=== PATIENT | male | born 1985 | race Caucasian/White ===

== ENCOUNTER 2017-02-14 07:06 | Day surgery (SDC) | payer MEDICARE, MEDICAID ==
[~2017-02-14] VITALS: Ht 165.1 cm; Wt 90.7 kg
[~2017-02-14 07:06] MED LIST: APAP/BUTALBITAL1 TA1 PO; ATENOLOL50 MG PO; BACLOFEN 10MG T10 MG PO; BENTYL GENERIC10 MG PO; BUSPAR 10MG TAB10 MG PO; CLOTRIMAZOLE1% TP; FLUOXETINE20 M2 PO; FLUTICASON0.05 MG/AC INH; HYDROCODONE 7.51 TAB PO; IBUPROFEN 600M600 MG PO; KEFLEX 500MG.500 MG PO; KETOCONAZOLE S EX; LOMOTIL 0.025 M1 TAB PO; LORATADINE 10MG10 M1; METOCLOPRAMIDE H5 MG PO; MIRALAX17 GM/PACK PO; NITROSTAT 0.4M0.4 MG PO; PHENERGAN 25MG.25 M1 PO; PRILOSEC OTC20 MG PO; PROTONIX 40MG T40 MG PO; RISPERDAL 0.50.5 MG PO; SUCRALFATE 1GM T1 GM PO; TAMIFLU 75MG CA75 MG PO; ZITHROMAX Z-PA250 M1 PO
--- NOTE | 2017-02-14 07:56 | Operative Note ---
Endoscopy Report Date: 02/14/17 Preoperative diagnosis: Epigastric pain Dyspepsia Procedure Type of procedure: Esophagogastroduodenoscopy with biopsies Indications: 31-year-old white male who apparently had previous stroke and heart attack. He had been seen in the emergency department with symptoms of heartburn, dyspepsia, and substernal burning. He has been on Prilosec and Protonix helped somewhat. Plan was for upper endoscopy. Consent was obtained and patient was taken to same-day surgery endoscopy procedure room. He was positioned in a lateral decubitus position. Adequate anesthesia was achieved with propofol. Olympus endoscope was inserted via the oropharynx. Esophagus appeared normal. Stomach was cannulated and insufflated. There was a large amount of food material and liquid within the stomach. This precluded good visualization. Retroflexion however appeared to show moderate hiatal hernia. Gastric antral mucosal biopsy was obtained for CLOtest. Pylorus was traversed and duodenal bulb and duodenal sweep were normal. Biopsy was obtained of the distal esophagus. Findings 1. Hiatal Hernia 2. RETAINED FOOD Follow-Up Follow-Up: Follow-up on the biopsies. Treat H. pylori if positive. If patient has truly been nothing by mouth for greater than 7 hours he may have gastric emptying problem. at 0755
[2017-02-14 08:51] VITALS: BP 109/69
== END 2017-02-14 08:46 | disposition home or self-care (01) ==
LOC: SDC 07:06
PROVIDERS: Surgery
PROC: 0DB68ZX Excision of Stomach, Via Natural or Artificial Opening Endoscopic, Diagnostic (ICD-10-PCS; principal; 2017-02-14 07:30)
DX: K44.9 Diaphragmatic hernia without obstruction or gangrene (principal); R10.13 Epigastric pain

== ENCOUNTER 2017-05-29 09:28 | Inpatient (IN) | payer MEDICARE, MEDICAID ==
[~2017-05-29] VITALS: Ht 165.1 cm; Wt 90.7 kg
[~2017-05-29 09:28] MED LIST changes: -FLUOXETINE20 M2 PO; +FLUOXETINE20 MG PO; -LORATADINE 10MG10 M1; +LORATADINE 10MG10 M1 PO
[2017-05-29 09:30] VITALS: BP 122/75
[2017-05-29 10:03] LABS: HEMOGLOBIN 16.8 g/dL (14.1-18.0); LYMPH # 0.8 K/mm3 (0.7-4.5)
--- NOTE | 2017-05-29 10:18 | Emergency Room Report ---
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 N Clinical Suspician of Infection? N Mental Status: 1 - Regular (Normal Baseline) Sepsis Risk:Low Sepsis Risk Have you (or family members/close friends) recently traveled outside the [place]? N If Yes, where/when: Have you had exposure to infectious disease within the past month? N TB? Other? 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 Today, he woke up his mother at 8:00 AMclaiming that he is not feeling well and has been cold night. upon arrival to the ER he reported that staff that his chest pain. febrile me that he underwent workup by Dr. Almodovar and he was told that his heart is pumping normal. During my interview he he told me that his condition started 2 days ago with a frontal head spasm, bilateral lower extremity spasm, and chest spasms. He admitted for having shortness of breath with exertion and nausea. He feels a burning pain on his back. He denies palpitations or dizziness. He denies vomiting or diarrhea. The patient is sitting in the bed with pressured speech talking to multiple staff members staff about his . Source patient, RN notes reviewed, family, old records Exam Limitations no limitations ALLERGIES Coded Allergies: Sulfa (Sulfonamide Antibiotics) ([facility] 02/10/17) levofloxacin (From LEVAQUIN) ([facility] 02/10/17) Home Medications Active Scripts Pantoprazole Sodium (Protonix 40MG TAB) 40 MG PO DAILY #30 TAB Ref 2 Prov: 11/21/16 Reported Medications OMEPRAZOLE MAGNESIUM (Prilosec OTC) 20 MG PO DAILY Polyethylene Glycol 3350 (Miralax) 17 GM PO DAILYP Loratadine (Loratadine 10MG Tablet) Sucralfate (Sucralfate 1GM Tablet) 1 GM PO ACHS Risperidone (Risperdal 0.5 Mg Tablet) 0.5 MG PO BID Fluoxetine Hydrochloride (Fluoxetine) 20 MG PO DAILY ATENOLOL (Atenolol 50MG) 50 MG PO DAILY Dicyclomine Hcl (Bentyl (Generic) 10MG Capsule) 10 MG PO BID Nitroglycerin (Nitrostat 0.4MG (1/150 Gr) Tabs #25) 0.4 MG PO PRN DIPHENOXYLATE HCL/ATROPINE (Lomotil 2.5-0.025 MG Tablet) 1 TAB PO QIDP BACLOFEN (Baclofen) 10 MG PO TIDP APAP 325MG/CAFF 40MG/BUTA 50MG (Wbyjif-Sselmybl-Imie 50-325-40) 1 TAB PO Q6HP PRN HEADACHES #20 Buspirone Hcl (Buspar 10MG) 10 MG PO DAILY #60 History Medical History General CAD? No Angina: No RI: Yes Hypertension? No Hyperlipidemia? No CHF? No DVT? No PE? No COPD? No Asthma? No Anemia? No GERD? Yes Gastric ulcers? No GI Bleed? No Hernia? No Thyroid Problems? No Hypothyroidism? No CVA? Yes Seizures? Yes Diabetes? No Renal Insuffiency? No End Stage Renal Disease? No UTI? Yes Stones? No GB Disease: No Nephritic Syndrome? No Asplenia? No Hepatitis? No Sickle Cell Disease? No Arthritis? No Migraines? No Cataracts? No Glaucoma? No MRSA? No HIV? No TB? No Anxiety? No Depression? No Cancer? No Immunization Hx DT/Tetanus 05/09/12 Flu NEVER Pneumonia REFUSES Surgical Hx Previous Surgery?Y EAR SURG.TO REMOVE WAX R CYSTOSCOPY TO OPEN URETHR FRONT TEETH PULLED BILATERAL SHOULDERS Family History Family Hx Diabetes Yes CAD Yes Hypertension Yes Hyperlipidemia No Cancer Yes TB No Social History Smoking Hx Smoker: Never Smoker Tobacco: No Alcohol Alcohol: No Review of Systems All Other Systems Reviewed and Negative Constitutional see HPI Eyes no symptoms reported ENT no symptoms reported. Respiratory no symptoms reported Cardiovascular see HPI, chest pain Gastrointestinal no symptoms reported Genitourinary no symptoms reported. Musculoskeletal see HPI, muscle pain (crampy in nature. ) Skin see HPI Psychiatric/Neurological no symptoms reported Physical Exam Vital Signs Vital Signs Date Time Temp Pulse Resp B/P Pulse O2 O2 Flow FiO2 Ox Delivery Rate 05/29 1311 125 18 125/76 94 05/29 1202 97.4 118 18 120/87 95 05/29 1107 118 18 120/87 95 05/29 1031 97.4 120 18 122/75 98 05/29 0930 97.4 120 18 122/75 98 - WBC >12,000 or <4,000 or 10% bands? 2 or more SIRS Criteria Met? B/P:122/75 MAP:90 Creatinine >2.0? UA output<0.5ml/kg/hr for 2 hrs? Platelet count >100,000? Lactate >2.0mmol/1? INR >1.2 or PTT > than 60 sec? Evidence of Organ Dysfunction? Provider documented clinical suspician of infection? N Sepsis Criteria Count: 1 Sepsis Risk: Low Sepsis Risk General Appearance normal appearance, WD/WN Eye Exam - bilateral eye normal exam, bilateral eye PERRL, bilateral eye EOMI Ear, Nose, Throat hearing grossly normal, normal ENT inspection Neck normal inspection, non-tender, supple, full range of motion Respiratory Status Yes: trachea midline, chest symmetrical, non tender chest. No: respiratory distress. Lung Sounds bilateral: normal breath sounds, lungs clear. 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 No Results/Orders Laboratory Tests 05/29/17 0950: Magnesium 1.8, B-Natriuretic Peptide < 5 05/29/17 0950: Sodium 139, Potassium 3.5, Chloride 99, Carbon Dioxide 30, BUN 13, Creatinine 1.2, Estimated Creat Clear 120, Estimated GFR (MDRD) 71, Glucose 111 H, Calcium 8.8, Total Bilirubin 0.4, AST 21, ALT 19, Alkaline Phosphatase 100, Creatine Kinase 80, CK-MB (CK-2) Rel Index 0.6, CK and CKMB Interp < 0.5, Troponin I < 0.02, Total Protein 7.9, Albumin 4.1, Globulin 3.8 H, Albumin/Globulin Ratio 1.1, D-Dimer 971 *H, WBC 5.4, RBC 5.67, Hgb 16.8, Hct 48.8, MCV 86.0, RDW 12.4, Plt Count 189, MPV 7.6, Gran % 79.9, Gran # 4.3, Lymphocytes % 14.0, Monocytes % 5.3, Eosinophils % 0.5, Basophils % 0.3, Lymphocytes # 0.8, Monocytes # 0.3, Eosinophils # 0.0, Basophils # 0.0, PUBS MCHC 34.4, MCH 29.6 Current Medication Orders Sig/Stuart Start time Last Medication Dose Route Stop Time Status Admin Iopamidol 60 ML ONCE ONE 05/29 1315 UNV 05/29 IV 05/29 1316 1300 Sodium Chloride 20 ML ONCE ONE 05/29 1315 DC 05/29 IV 05/29 1316 1300 Sodium Chloride 20 ML ONCE ONE 05/29 1315 DC 05/29 IV 05/29 1316 1300 Sodium Chloride 10 ML ONCE ONE 05/29 1315 DC 05/29 IV 05/29 1316 1300 Lidocaine/Epinephrine 0 .STK-MED ONE 05/29 1205 DC .ROUTE Methocarbamol 500 MG ONCE ONE 05/29 1115 DC 05/29 PO 05/29 1116 1129 Aspirin 324 MG ONCE ONE 05/29 0945 DC 05/29 PO 05/29 0946 0944 Aspirin 0 .STK-MED ONE 05/29 0936 DC .ROUTE Sodium Chloride 10 ML PRN PRN 05/29 0930 AC IV 05/30 0930 Orders Procedure Date/time Status DIET-NOTHING BY MOUTH 05/29 D Active Decision to admit 05/[address] CHEST W/PE PROTOCOL REQ 05/29 1214 Complete MAGNESIUM 05/29 1008 Complete D-DIMER 05/29 1008 Complete BRAIN NATRIURETIC PEPTIDE 05/29 1008 Complete ELECTROCARDIOGRAM REQUEST 05/29 930 Active IV SALINE LOCK 05/29 930 Active BARREL RAISER 05/29 930 Active CBC WITH AUTO DIFF 05/29 930 Complete CARDIAC ENZYMES 05/29 930 Complete CHEM 12 PROFILE 05/29 930 Complete 12 LEAD EKG-MARY (INITIAL) 05/29 UNK Active CM/EKG CM/EKG EKG sinus tachycardia 1 28/m with T-wave inversions in the inferior and anterior leads, these findings are relatively new to a prior electrocardiogram that was done on November Departure Departure Time of Disposition 1017 Disposition Still a Patient Clinical Impression Primary Impression: Atypical chest pain Secondary Impressions: Depression Condition STABLE Referrals Dreek Phelan MD (Family) Additional Instructions the ct scan was negative PE . I called Dr molina who admitted for Dr. Phelan. Discharge Counseling Counseled pt/family regarding diagnosis, test results ED Critical Care Critical Care No If Critical Care minutes are documented, the time involved in the performance of seperately reportable procedures was not counted toward critical care time documented. I directly delivered medical care to this critically ill and/or injured patient. Timely evaluation and treatment was necessary to address the significant organ system(s) dysfunction present in this patient. at 1786
[2017-05-29 10:30] LABS: BUN 13 mg/dL (7-18); GFR (ESTIMATED) 71 ML/MIN (>60)
--- NOTE | 2017-05-29 10:58 | RADIOLOGY REPORT PS360 ---
CHEST-PORTABLE COMPARISON: PA and lateral chest 11/16/2016 HISTORY: S pain TECHNIQUE: Portable upright chest FINDINGS: The lung gilliam are well expanded and appear clear of infiltrate. The cardiac silhouette and vascularity are normal. There are calcified granulomata in both lower lobes. There are threaded orthopedic pins in both clavicles transfixing old healed fracture IMPRESSION: Nonacute chest findings
--- NOTE | 2017-05-29 13:20 | RADIOLOGY REPORT PS360 ---
CTA -CHEST COMPARISON: None HISTORY: Chest pain, elevated d-dimer TECHNIQUE: Multiple axial scans obtained from the thoracic inlet to the hemidiaphragms after rapid injection of IV contrast. Sagittal coronal reformats were evaluated as well. FINDINGS: The lung gilliam are well expanded and there is excellent vascular opacification. There is no CT evidence of pulmonary emboli. Cardiac size is normal. There is no pneumonic infiltrate and is no pleural fluid. The bony thorax appears normal. There is a calcified granuloma right lower lobe. Both adrenal glands appear normal. IMPRESSION: Negative for pulmonary embolus, no other significant abdomen I noted.
[2017-05-29 14:57] VITALS: BP 148/83
[2017-05-29 15:04] VITALS: BP 148/83
[2017-05-29 20:25] VITALS: BP 117/84
--- NOTE | 2017-05-29 23:17 | ACUTE CARE PROGRESS NOTE (QUA) ---
Progress Notes Subjective Date 05/29/17 Time 2307 Note Abran was admitted this evening with multiple complaints. He says his head hurts his abdomen hurts in his legs hurt. There was some concern by the ER physician that he had electrocardiogram abnormalities. He does have known mitral valve prolapse. He usually takes atenolol but apparently he has stopped taking many of his medicines including atenolol. He states that he is due to have some evaluation of his gallbladder. He pleads for some IV medication so he can get some sleep. He did vomit once earlier, though the nurse wondered if this was self-induced. Patient/family reports: pain, headache, nausea, vomiting, stomach pain Objective Findings Last VS-Temp:99.1 B/P:117/84 Pulse:122 Resp:18 SaO2:96 ROOM AIR Last weight lbs:200 oz:0 K.720 Method:Floor Scales Exam General appearance: alert (complaining of pain) ENT: mucous membranes moist, poor dentition Cardiovascular: tachycardia (110) Respiratory: clear to auscultation, no respiratory distress ABD: soft, no tenderness, no guarding, no organomegaly Extremities: no peripheral edema Musculoskeletal: equal muscle strength Skin: dry, intact, rash of tinea versicolor versus some vitiligo Neuro: he hardly opens his eyes but complains of pain in his head and abdomen and legs. He pleads for medication in the IV that will allow him to go to sleep. Reviewed: medications, vital signs, lab results Assessment/Plan Problem List 1. Atypical chest pain 2. Depression 3. Leg pain 4. Mitral valve prolapse 5. Anxiety disorder Patient condition Stable Plan: see orders. This inpt stay is expected to cross 2 MNs from start of care No at [phone]
[2017-05-29 23:38] VITALS: BP 116/77
[2017-05-30 03:58] VITALS: BP 109/70
[2017-05-30 06:49] LABS: HEMOGLOBIN 16.1 g/dL (14.1-18.0); LYMPH # 0.8 K/mm3 (0.7-4.5); LYMPH % 14.7 % (10-50)
--- NOTE | 2017-05-30 07:26 | PHARMACY CLINIC NOTE ---
Patient Demographics Patient Demographics Admission date: 05/29/17 Date: 05/30/17 Time: 0725 Allergies Coded Allergies: Sulfa (Sulfonamide Antibiotics) ([facility] 02/10/17) levofloxacin (From LEVAQUIN) ([facility] 02/10/17) HEIGHT- FT: 5 IN: 5.00 K.720 VTE General Information Labs: Laboratory Tests 05/30 05/29 0630 0950 Hematology Hgb (14.1 - 18.0 g/dL) 16.1 16.8 Hct (42.0 - 52.0 %) 47.1 48.8 Plt Count (142 - 424 K/mm3) 145 189 Disclaimer The following section includes nursing documentation that has been pulled in for pharmacy review. Patient's VTE score: 0 Patient's VTE Risk: VERY LOW RISK Clinical trial participant? No VTE prophylaxis NQF [id number] VTE prophylaxis ordered? Yes Type of prophylaxis/treatment: CARROL at 0788
[2017-05-30 07:53] VITALS: BP 115/89
[2017-05-30] MEDS ORDERED: FLUOXETINE20 M1 PO (09:27)
--- NOTE | 2017-05-30 09:43 | CARDIOVASCULAR REPORT ---
"Venous Exam Indications: 729.5 Pain in limb. IMPRESSIONS 1. There is no evidence of significant Reflux. 2. No evidence of deep or superficial vein thrombosis involving the right lower extremity and left lower extremity Complete lower extremity venous duplex evaluation. Doppler flow study including spectral analysis, color and carol[place] scale imaging. Location: Bedside. Patient status: Inpatient. Tables: Venous flow and imaging: + +-------+ + |Location |Overall|Flow properties | + +-------+ + |Right common femoral |Patent |Normal phasicity; spontaneous; | | | |normal augmentation; compressible| + +-------+ + |Right saphenofemoral junction|Patent |Compressible | + +-------+ + |Right profunda femoral |Patent |Compressible | + +-------+ + |Right femoral |Patent |Normal phasicity; spontaneous; | | | |normal augmentation; | | | |compressible; no reflux | + +-------+ + |Right greater saphenous |Patent |Normal phasicity; spontaneous; | | | |normal augmentation; compressible| + +-------+ + |Right popliteal |Patent |Normal phasicity; spontaneous; | | | |normal augmentation; compressible| + +-------+ + |Right posterior tibial |Patent |Compressible | + +-------+ + |Right peroneal |Patent |Compressible | + +-------+ + |Right gastrocnemius |Patent |Compressible | + +-------+ + |Right soleal |Patent |Compressible | + +-------+ + |Left common femoral |Patent |Normal phasicity; spontaneous; | | | |normal augmentation; compressible| + +-------+ + |Left saphenofemoral junction |Patent |Compressible | + +-------+ + |Left profunda femoral |Patent |Compressible | + +-------+ + |Left femoral |Patent |Normal phasicity; spontaneous; | | | |normal augmentation; compressible| + +-------+ + |Left greater saphenous |Patent |Normal phasicity; spontaneous; | | | |normal augmentation; compressible| + +-------+ + |Left popliteal |Patent |Normal phasicity; spontaneous; | | | |normal augmentation; compressible| + +-------+ + |Left posterior tibial |Patent |Compressible | + +-------+ + |Left peroneal |Patent |Compressible | + +-------+ + |Left gastrocnemius |Patent |Compressible | + +-------+ + |Left soleal |Patent |Compressible | + +-------+ + (Report amended ) Electronically signed by: Abran Caraballo [id number]"
--- NOTE | 2017-05-30 09:56 | HISTORY AND PHYSICAL REPORT ---
History and Physical ([facility]) Date of admission: 05/30/17 Chief complaint: headache and leg pain History: History of Present Illness: Mr Steinberg is a 31 year old male with a history of ADHD, GERD, Anxiety and IBS who presented to [facility] ER with headache, nausea, and bilateral leg pain. He did think that he vomited once. He has had normal bowel movements. He also states that he has had chest pain and denies SOB. With workup in the ER patient was found to be tachycardiac and D Dimer was found to be elevated; CTA of the chest was negative for PE. He was then admitted for further evaluation and treatment. He did not sleep last night due to the headache and leg pain. He denies CP this AM. Hr has slowed to in the 70's. Past Medical History: Medical History: CAD? No Angina: No UT: No Hypertension? No Hyperlipidemia? No CHF? No DVT? No PE? No COPD? No Asthma? No Anemia? No GERD? Yes Gastric ulcers? No GI Bleed? No Hernia? No Thyroid Problems? No Hypothyroidism? No CVA? No Seizures? Yes Diabetes? No Renal Insuffiency? No UTI? Yes Stones? No GB Disease: No Nephritic Syndrome? No Asplenia? No Hepatitis? No Sickle Cell Disease? No Arthritis? No Migraines? Yes Cataracts? No Glaucoma? No MRSA? No HIV? No TB? No Anxiety? Yes Depression? Yes Cancer? No Additional hx: ADHD Tobacco use disorder History of Encephalitis as a child Surgical history: Previous Surgery?Y EAR SURG.TO REMOVE WAX R CYSTOSCOPY TO OPEN URETHR FRONT TEETH PULLED BILATERAL SHOULDERS Allergies: Coded Allergies: Sulfa (Sulfonamide Antibiotics) ([facility] 02/10/17) levofloxacin (From LEVAQUIN) ([facility] 02/10/17) Family History: Family history: Postive for: CAD, DM. Social History: Smoking Hx Tobacco: Yes Smoker: Current Every Day Smoker Type: Cigarettes Packs/day: 1 1/2 - 2 Packs Are you exposed to second hand Yes Alcohol: Alcohol: No Hx of Drug Use: Drug Use? No Review of Systems: Constitutional Positive for: fatigue. ENT No: mouth pain, sore throat. Cardiovascular Positive for: chest pain, palpitations. No: edema. Respiratory Positive for: non-productive. No: shortness of air, hemoptysis. GI Positive for: GERD, nausea, vomitting. No: abdominal pain, constipation, diarrhea, hematemeis, hematochezia. (male) No: frequency, hematuria. Neurological Positive for: headache, seizure. No: syncope. Musculoskeletal Positive for: extremity pain (bilateral legs). Psychiatric Positive for: agitation (at times), anxious, depression. Physical Exam: Vital signs: 1ST Vital Signs Result Date Time Pulse Ox 98 05/29 930 B/P 122/75 05/29 930 Temp 97.4 05/29 930 Pulse 120 05/29 930 Resp 18 05/29 930 O2 Delivery ROOM AIR 05/29 1457 Exam: General appearance: alert, no acute distress, well-developed, well-nourished Eyes: anicteric, pupils reactive to light ENT: mucous membranes moist Neck: no carotid bruit, full range of motion, supple, carotid bruit (absent bilaterally), lymphadenopathy (absent), thyroid (normal) Cardiovascular: regular rate & rhythm, tachycardia Respiratory: clear to auscultation (bilat anterior and posterior) ABD: soft, no tenderness, no guarding, bowel sounds present Extremities: full range of motion, moves all, no peripheral edema, pedal pulses (present), no calf tenderness Neuro: alert, oriented, speech clear Lab data: Labs: Laboratory Tests 05/30/17 0630: Sodium 138, Potassium 3.6, Chloride 101, Carbon Dioxide 26, BUN 15, Creatinine 1.0, Estimated Creat Clear 139, Estimated GFR (MDRD) 88, Glucose 108 H, Calcium 8.8, WBC 5.3, RBC 5.42, Hgb 16.1, Hct 47.1, MCV 87.0, RDW 12.5, Plt Count 145, MPV 7.1 L, Gran % 79.6, Gran # 4.2, Lymphocytes % 14.7, Monocytes % 4.7, Eosinophils % 0.6, Basophils % 0.4, Lymphocytes # 0.8, Monocytes # 0.3, Eosinophils # 0.0, Basophils # 0.0, PUBS MCHC 34.2, MCH 29.7 05/29/17 2325: Troponin I < 0.02 05/29/17 1650: Troponin I < 0.02 05/29/17 0950: Magnesium 1.8, B-Natriuretic Peptide < 5 05/29/17 0950: Sodium 139, Potassium 3.5, Chloride 99, Carbon Dioxide 30, BUN 13, Creatinine 1.2, Estimated Creat Clear 120, Estimated GFR (MDRD) 71, Glucose 111 H, Calcium 8.8, Total Bilirubin 0.4, AST 21, ALT 19, Alkaline Phosphatase 100, Creatine Kinase 80, CK-MB (CK-2) Rel Index 0.6, CK and CKMB Interp < 0.5, Troponin I < 0.02, Total Protein 7.9, Albumin 4.1, Globulin 3.8 H, Albumin/Globulin Ratio 1.1, D-Dimer 971 *H, WBC 5.4, RBC 5.67, Hgb 16.8, Hct 48.8, MCV 86.0, RDW 12.4, Plt Count 189, MPV 7.6, Gran % 79.9, Gran # 4.3, Lymphocytes % 14.0, Monocytes % 5.3, Eosinophils % 0.5, Basophils % 0.3, Lymphocytes # 0.8, Monocytes # 0.3, Eosinophils # 0.0, Basophils # 0.0, PUBS MCHC 34.4, MCH 29.6 Microbiology 05/29 2325 BLOOD: Anaerobic Blood Culture - RES 05/29 2325 BLOOD: Aerobic Blood Culture - RES Radiology results: Results: CXR 05/29/17 IMPRESSION: Nonacute chest findings CTA of chest 05/29/17 IMPRESSION: Negative for pulmonary embolus, no other significant abdomen I noted. Diagnosis(es): 1. Atypical chest pain 2. Depression 3. Leg pain 4. Anxiety disorder 5. GERD (gastroesophageal reflux disease) 6. Headache 7. ADHD (attention deficit hyperactivity disorder) 8. Fever Plan: venous doppler of the legs; urinalysis; cardiology consult (Gabi Kemp APRN) Date of admission: 05/30/17 Past Medical History: Medications: Discontinued Scripts Pantoprazole Sodium (Protonix 40MG TAB) 40 MG PO DAILY #30 TAB Ref 2 Prov: 11/21/16 DC: 05/30/1725 Reported Medications Loratadine (Loratadine 10MG Tablet) 10 MG PO DAILY Fluoxetine Hcl (Fluoxetine 20MG) 60 MG PO DAILY ATENOLOL (Atenolol 50MG) 50 MG PO DAILY Dicyclomine Hcl (Bentyl (Generic) 10MG Capsule) 10 MG PO BID Nitroglycerin (Nitrostat 0.4MG (1/150 Gr) Tabs #25) 0.4 MG PO PRN Buspirone Hcl (Buspar 10MG) 10 MG PO BID #60 TAB Omeprazole (Omeprazole 40MG) 40 MG PO DAILY #30 CAP Linaclotide (Linzess 145MCG) 145 MCG PO DAILY #90 CAP Discontinued Reported Medications Risperidone (Risperdal 0.5 Mg Tablet) 0.5 MG PO BID DIPHENOXYLATE HCL/ATROPINE (Lomotil 2.5-0.025 MG Tablet) 1 TAB PO QIDP Diagnosis(es): 1. Atypical chest pain 2. Depression 3. Leg pain 4. Anxiety disorder 5. GERD (gastroesophageal reflux disease) 6. Headache 7. ADHD (attention deficit hyperactivity disorder) 8. Fever Plan: Pt seen and examined. Concur with above. He appears in NAD. He is hungry and asking for something to eat. He refuses to see Dr. Almodovar or Dr. BLANK and asks to see Jeramy Garcia. He actually spent most of the interview talking about his cat that dies lost week. He is having her cremated and is working on ordering an urn for her remains and is searching the internet for an appropriate inscription for the urn. He also wanted to show me a picture of his new 4 month old cat. Because of he persistent complaint of leg pain and his elevated D-dimer, will check venous doppler. Noted with fever but no obvious source. Will check UA. (Derek Phelan MD) at [phone] at [phone]
[2017-05-30] MEDS ORDERED: OMEPRAZOLE40 MG PO (11:23)
[2017-05-30] MEDS ORDERED: BENTYL10 MG PO (11:23)
[2017-05-30] MEDS ORDERED: LINZESS145 MCG PO (11:24)
--- NOTE | 2017-05-30 14:42 | CONSULT NOTE ---
Standard Demographics Patient Demo Date of Consultation: 05/30/17 Referring Provider: Cricket Phelan MD Reason for Consultation: Chest pain. PRIMARY DIAGNOSIS: CHEST PAIN Problem list Problem list: 1. Atypical CP described as a "spasm" that lasts for 1-2 minutes. A. Normal serial Troponin levels. B. EKG on arrival: sinus tach at 128 bpm, short pr interval (old finding), ST-T abns inferiorly and anteriorly, cannot r/o old inferior CA C. EKG now: sinus tach at 101 bpm, short pr interval, ST-T abn lead III, NS T wave abn anteriorly D. Stress MPI 12/29/16: "low risk" abn test with apical ischemia, normal EF and wall motion. E. Echo 12/29/16: mild LVH, EF 50% w/no regional wall motion abns, no significant valve disease. 2. Sinus tachycardia of unclear etiology. A. Elevated D-Dimer (971) on arrival but negative CTA-Chest to r/o PE. B. Intermittent low-grade fever. C. Negative bilateral LE venous duplex with no evidence of deep or superficial vein thrombosis. D. Normal PA/Lat CXR E. Normal CMP and CBC. 3. ADHD 4. Anxiety 5. GERD 6. IBS 7. Smoker History of present illness: History of present illness: 31 year old male with a history of ADHD, GERD, Anxiety and IBS who presented to [facility] ER yesterday with multiple complaints to include chest pain ("spasms"), headache, nausea, and bilateral leg pain. He did think that he vomited once. He has had normal bowel movements. He denies SOA. With workup in the ER patient was found to be tachycardic. EKG showed sinus tach at 128 bpm, short pr interval (old finding), ST-T abns inferiorly and anteriorly and cannot r/o old inferior CA. D Dimer was found to be elevated; CTA of the chest was negative for PE. CXR was normal. He was then admitted for further evaluation and treatment. He has r/o for CA with normal serial Troponin levels. CBC and CMP were basically normal. He tells me he's been having the chest pain (spasms) for a couple of months. They last 1-2 minutes. He can't really provide any aditional details. He says he quit taking his Atenolol a month ago and apparently is supposed to be on several psych meds which he has also stopped. Past Medical History: General: Hypertension No CVA No Seizures Yes TB No COPD No Asthma No Diabetes No Angina No CA No Hyperlipidemia No Urinary Yes Cancer No Rheumatic H.D. No Ulcers No MRSA No GB Disease No Other MITRAL VALVE PROLAPSE,SINAN Additional hx ADHD Tobacco use disorder History of Encephalitis as a child Past Surgical HX: Previous Surgery?Y EAR SURG.TO REMOVE WAX R CYSTOSCOPY TO OPEN URETHR FRONT TEETH PULLED BILATERAL SHOULDERS Allergies Coded Allergies: Sulfa (Sulfonamide Antibiotics) (I-HIVES 02/10/17) levofloxacin (From LEVAQUIN) (I-HIVES 02/10/17) Home medications: Reported Medications Loratadine (Loratadine 10MG Tablet) 10 MG PO DAILY Fluoxetine Hcl (Fluoxetine 20MG) 60 MG PO DAILY Dicyclomine Hcl (Bentyl (Generic) 10MG Capsule) 10 MG PO BID Nitroglycerin (Nitrostat 0.4MG (1/150 Gr) Tabs #25) 0.4 MG PO PRN Buspirone Hcl (Buspar 10MG) 10 MG PO BID #60 TAB Omeprazole (Omeprazole 40MG) 40 MG PO DAILY #30 CAP Linaclotide (Linzess 145MCG) 145 MCG PO DAILY #90 CAP Immunization HX DT/Tetanus Unknown Flu NEVER Pneumonia Refuses TB Test in last year No Family history Family HX Diabetes Yes CAD Yes Hypertension Yes Hyperlipidemia Yes Cancer Yes TB No Social Hx: Smoking HX Tobacco Yes Type Cigarettes Packs/day 1 1/2 - 2 PACKS Are you/the child exposed to second-hand smoke: Yes Alcohol Alcohol: No Hx of Drug Use Drug Use? No Review of systems: Constitutional other (fatigue). Respiratory No: shortness of breath, SOB with excertion, SOB at rest. Cardiovascular chest pain, palpitations Gastrointestinal/Abdominal nausea, rectal bleeding, vomiting Genitourinary frequency. Musculoskeletal other (leg pain). Neurological Yes: headache, seizure disorder. Psychiatric Yes: anxious, depressed. Exam: Admission Vital Signs: 1ST Vital Signs Result Date Time Pulse Ox 98 05/29 930 B/P 122/75 05/29 930 Temp 97.4 05/29 930 Pulse 120 05/29 930 Resp 18 09/04 0930 O2 Delivery ROOM AIR 05/29 1457 Last Vital Signs: Vital Signs Result Date Time Resp 18 05/30 1309 Pulse Ox 99 05/30 0916 B/P 115/89 05/30 09 Temp 99.1 05/30 0916 Pulse 79 05/30 0916 O2 Delivery ROOM AIR 05/30 0753 Exam General appearance: alert, awake, no acute distress Neck: no carotid bruit Cardiovascular: regular rate & rhythm, no murmur, tachycardia Respiratory: clear to auscultation, normal breath sounds, no respiratory distress ABD: soft, no tenderness, bowel sounds present Extremities: no peripheral edema Neuro: alert, intact Plan: Assessment: 1. Atypical CP described as a "spasm" that lasts for 1-2 minutes. A. Normal serial Troponin levels. B. EKG on arrival: sinus tach at 128 bpm, short pr interval (old finding), ST-T abns inferiorly and anteriorly, cannot r/o old inferior CA C. EKG now: sinus tach at 101 bpm, short pr interval, ST-T abn lead III, NS T wave abn anteriorly D. Stress MPI 12/29/16: "low risk" abn test with apical ischemia, normal EF and wall motion. E. Echo 12/29/16: mild LVH, EF 50% w/no regional wall motion abns, no significant valve disease. 2. Sinus tachycardia of unclear etiology, probably due to anxiety and intermittent fever. A. Elevated D-Dimer (971) on arrival but negative CTA-Chest to r/o PE. B. Intermittent low-grade fever. C. Negative bilateral LE venous duplex with no evidence of deep or superficial vein thrombosis. D. Normal PA/Lat CXR E. Normal CMP and CBC. Recommendations: 1. EKG (completed) 2. Replace Metoprolol with Bisoprolol 5 mg bid (pt is concerned about metoprolol adversely affecting sex). 3. I don't think that any additional cardiology workup is necessary at this time , given his atypical sxs and "low-risk" stress MPI study earlier this year. 4. F/U in the office in 1-2 weeks (they will call to make appt). at 1232
--- NOTE | 2017-05-30 14:42 | CONSULT NOTE ---
Standard Demographics Patient Demo Date of Consultation: 05/30/17 Referring Provider: Cricket Phelan MD Reason for Consultation: Chest pain. PRIMARY DIAGNOSIS: CHEST PAIN Problem list Problem list: 1. Atypical CP described as a "spasm" that lasts for 1-2 minutes. A. Normal serial Troponin levels. B. EKG on arrival: sinus tach at 128 bpm, short pr interval (old finding), ST-T abns inferiorly and anteriorly, cannot r/o old inferior [place] C. EKG now: sinus tach at 101 bpm, short pr interval, ST-T abn lead III, NS T wave abn anteriorly D. Stress MPI 12/29/16: "low risk" abn test with apical ischemia, normal EF and wall motion. E. Echo 12/29/16: mild LVH, EF 50% w/no regional wall motion abns, no significant valve disease. 2. Sinus tachycardia of unclear etiology. A. Elevated D-Dimer (971) on arrival but negative CTA-Chest to r/o PE. B. Intermittent low-grade fever. C. Negative bilateral LE venous duplex with no evidence of deep or superficial vein thrombosis. D. Normal PA/Lat CXR E. Normal CMP and CBC. 3. ADHD 4. Anxiety 5. GERD 6. IBS 7. Smoker History of present illness: History of present illness: 31 year old male with a history of ADHD, GERD, Anxiety and IBS who presented to [facility] ER yesterday with multiple complaints to include chest pain ("spasms"), headache, nausea, and bilateral leg pain. He did think that he vomited once. He has had normal bowel movements. He denies SOA. With workup in the ER patient was found to be tachycardic. EKG showed sinus tach at 128 bpm, short pr interval (old finding), ST-T abns inferiorly and anteriorly and cannot r/o old inferior IL. D Dimer was found to be elevated; CTA of the chest was negative for PE. CXR was normal. He was then admitted for further evaluation and treatment. He has r/o for IL with normal serial Troponin levels. CBC and CMP were basically normal. He tells me he's been having the chest pain (spasms) for a couple of months. They last 1-2 minutes. He can't really provide any aditional details. He says he quit taking his Atenolol a month ago and apparently is supposed to be on several psych meds which he has also stopped. Past Medical History: General: Hypertension No CVA No Seizures Yes TB No COPD No Asthma No Diabetes No Angina No IL No Hyperlipidemia No Urinary Yes Cancer No Rheumatic H.D. No Ulcers No MRSA No GB Disease No Other MITRAL VALVE PROLAPSE,SINAN Additional hx ADHD Tobacco use disorder History of Encephalitis as a child Past Surgical HX: Previous Surgery?Y EAR SURG.TO REMOVE WAX R CYSTOSCOPY TO OPEN URETHR FRONT TEETH PULLED BILATERAL SHOULDERS Allergies Coded Allergies: Sulfa (Sulfonamide Antibiotics) (I-HIVES 02/10/17) levofloxacin (From LEVAQUIN) (I-HIVES 02/10/17) Home medications: Reported Medications Loratadine (Loratadine 10MG Tablet) 10 MG PO DAILY Fluoxetine Hcl (Fluoxetine 20MG) 60 MG PO DAILY Dicyclomine Hcl (Bentyl (Generic) 10MG Capsule) 10 MG PO BID Nitroglycerin (Nitrostat 0.4MG (1/150 Gr) Tabs #25) 0.4 MG PO PRN Buspirone Hcl (Buspar 10MG) 10 MG PO BID #60 TAB Omeprazole (Omeprazole 40MG) 40 MG PO DAILY #30 CAP Linaclotide (Linzess 145MCG) 145 MCG PO DAILY #90 CAP Immunization HX DT/Tetanus Unknown Flu NEVER Pneumonia Refuses TB Test in last year No Family history Family HX Diabetes Yes CAD Yes Hypertension Yes Hyperlipidemia Yes Cancer Yes TB No Social Hx: Smoking HX Tobacco Yes Type Cigarettes Packs/day 1 1/2 - 2 PACKS Are you/the child exposed to second-hand smoke: Yes Alcohol Alcohol: No Hx of Drug Use Drug Use? No Review of systems: Constitutional other (fatigue). Respiratory No: shortness of breath, SOB with excertion, SOB at rest. Cardiovascular chest pain, palpitations Gastrointestinal/Abdominal nausea, rectal bleeding, vomiting Genitourinary frequency. Musculoskeletal other (leg pain). Neurological Yes: headache, seizure disorder. Psychiatric Yes: anxious, depressed. Exam: Admission Vital Signs: 1ST Vital Signs Result Date Time Pulse Ox 98 05/29 930 B/P 122/75 05/29 930 Temp 97.4 05/29 930 Pulse 120 05/29 930 Resp 18 09/04 0930 O2 Delivery ROOM AIR 05/29 1457 Last Vital Signs: Vital Signs Result Date Time Resp 18 05/30 1309 Pulse Ox 99 05/30 0916 B/P 115/89 05/30 09 Temp 99.1 05/30 0916 Pulse 79 05/30 0916 O2 Delivery ROOM AIR 05/30 0753 Exam General appearance: alert, awake, no acute distress Neck: no carotid bruit Cardiovascular: regular rate & rhythm, no murmur, tachycardia Respiratory: clear to auscultation, normal breath sounds, no respiratory distress ABD: soft, no tenderness, bowel sounds present Extremities: no peripheral edema Neuro: alert, intact Plan: Assessment: 1. Atypical CP described as a "spasm" that lasts for 1-2 minutes. A. Normal serial Troponin levels. B. EKG on arrival: sinus tach at 128 bpm, short pr interval (old finding), ST-T abns inferiorly and anteriorly, cannot r/o old inferior IL C. EKG now: sinus tach at 101 bpm, short pr interval, ST-T abn lead III, NS T wave abn anteriorly D. Stress MPI 12/29/16: "low risk" abn test with apical ischemia, normal EF and wall motion. E. Echo 12/29/16: mild LVH, EF 50% w/no regional wall motion abns, no significant valve disease. 2. Sinus tachycardia of unclear etiology, probably due to anxiety and intermittent fever. A. Elevated D-Dimer (971) on arrival but negative CTA-Chest to r/o PE. B. Intermittent low-grade fever. C. Negative bilateral LE venous duplex with no evidence of deep or superficial vein thrombosis. D. Normal PA/Lat CXR E. Normal CMP and CBC. Recommendations: 1. EKG (completed) 2. Replace Metoprolol with Bisoprolol 5 mg bid (pt is concerned about metoprolol adversely affecting sex). 3. I don't think that any additional cardiology workup is necessary at this time , given his atypical sxs and "low-risk" stress MPI study earlier this year. 4. F/U in the office in 1-2 weeks (they will call to make appt). at 1232
[2017-05-30 14:59] LABS: URINE BLOOD 2+ (NEG)
[2017-05-30 15:09] LABS: URINE BILIRUBIN - DIPSTICK 1+ (NEG)
[2017-05-30 15:27] LABS: URINE SQUAMOUS CELLS OCC #/hpf (OCC)
[2017-05-30 16:09] VITALS: BP 122/81
--- NOTE | 2017-05-30 18:33 | ACUTE CARE PROGRESS NOTE (QUA) ---
Progress Notes Subjective Date 05/30/17 Time 1822 Note FOLLOW UP NOTE: Cardiology consult noted and appreciated. His chief complaint tinnitus headache and nausea. He thinks he has vomited 3 times today but this has not been witnessed by the nurses. He refuses to use the bedside basin and insists on going into the bathroom and locking the door when he feels nauseated. He apparently is following with Dr. Santillan in [place] for his GI symptoms and is scheduled for a workup of his gallbladder. A recent gastric emptying study was reported as normal by his mother. He has had no fever through the day today. Objective Findings Last VS-Temp:98.7 B/P:122/81 Pulse:74 Resp:20 SaO2:97 ROOM AIR Last weight lbs:200 oz:0 K.720 Method:Floor Scales He is sitting up in bed surfing the Internet on his computer. He appears in no distress at present. His abdomen is soft and nondistended with no unusual tenderness. Assessment/Plan Problem List 1. Atypical chest pain 2. Nausea & vomiting 3. Depression 4. Leg pain 5. Anxiety disorder 6. GERD (gastroesophageal reflux disease) 7. Headache 8. ADHD (attention deficit hyperactivity disorder) 9. Fever Plan: He will be scheduled for a gall bladder US in the morning. Will order Compazine for his nausea. I have asked him to show any emesis to the nurses to assess for coffee ground emesis. Repeat labs in AM. This inpt stay is expected to cross 2 MNs from start of care No at 1832
[2017-05-30 19:51] VITALS: BP 115/78
[2017-05-30 20:00] VITALS: BP 115/78
[2017-05-30 23:52] VITALS: BP 103/63
[2017-05-31 04:00] VITALS: BP 102/62
[2017-05-31 07:01] LABS: HEMOGLOBIN 16.6 g/dL (14.1-18.0); LYMPH % 24.5 % (10-50)
--- NOTE | 2017-05-31 07:42 | ACUTE CARE PROGRESS NOTE (QUA) ---
Progress Notes Subjective Date 05/31/17 Time 0734 Note Per mother: patient had an uncomfortable night; had nausea and vomiting and slept at intervals; Med did help; unable to get him to answer questions this AM ; assists with exam. NPO for RUQ US this AM. Did have a fever again last evening. Objective Findings Laboratory Tests 05/31/17 0630: Sodium 140, Potassium 3.6, Chloride 101, Carbon Dioxide 29, BUN 15, Creatinine 1.0, Estimated Creat Clear 139, Estimated GFR (MDRD) 88, Glucose 105, Calcium 8.8, Total Bilirubin 0.5, AST 57 H, ALT 36, Alkaline Phosphatase 92, Total Protein 7.5, Albumin 3.7, Globulin 3.8 H, Albumin/Globulin Ratio 1.0 L, Amylase 38, Lipase 129, WBC 4.0 L, RBC 5.54, Hgb 16.6, Hct 48.7, MCV 87.8, RDW 12.4, Plt Count 120 L, MPV 7.6, Gran % 67.2, Gran # 2.7, Lymphocytes % 24.5, Monocytes % 6.6, Eosinophils % 1.2, Basophils % 0.5, Lymphocytes # 1.0, Monocytes # 0.3, Eosinophils # 0.1, Basophils # 0.0, PUBS MCHC 34.0, MCH 29.9 05/30/17 1311: Urine Color DK YELLOW, Urine Appearance CLEAR, Urine pH 6.0, Ur Specific [place] 1.025, Urine Protein TRACE H, Urine Ketones 1+ H, Urine Blood 2+ H, Urine Nitrate NEGATIVE, Urine Bilirubin 1+ H, Urine Urobilinogen 1.0, Ur Leukocyte Esterase NEGATIVE, Urine RBC 3-5, Urine WBC OCC, Ur Squamous Epith Cells OCC, Urine Bacteria 2+, Urine Mucus 4+, Urine Glucose NEGATIVE Microbiology 05/30 1311 URINE CC: Urine Culture - RECD Vital Signs Date Time Temp Pulse Resp B/P Pulse O2 O2 Flow FiO2 Ox Delivery Rate 05/31 0400 98.6 82 18 102/62 98 ROOM AIR 05/30 2352 99.7 98 16 103/63 99 ROOM AIR 05/30 2203 16 05/30 2101 16 05/30 2000 100.5 102 16 115/78 98 05/30 1951 100.5 102 18 115/78 98 ROOM AIR 05/30 1609 98.7 74 20 122/81 97 ROOM AIR 05/30 1533 18 05/30 1309 18 05/30 0958 18 05/30 0916 99.1 79 18 115/89 99 05/30 0753 99.1 79 18 99 ROOM AIR Current Medications Acetaminophen 0 .STK-MED ONE PO (DC) Tramadol HCl 0 .STK-MED ONE .ROUTE (DC) Bisoprolol Fumarate 5 MG BID PO Lorazepam 0 .STK-MED ONE .ROUTE (DC) Sodium Chloride 25 ML .STK-MED ONE IV (DC) Promethazine HCl 0 .STK-MED ONE .ROUTE (DC) Prochlorperazine Edisylate 10 MG Q4HP PRN IV Tramadol HCl 50 MG Q6 PO (CAN) Tramadol HCl 0 .STK-MED ONE .ROUTE (DC) Tramadol HCl 50 MG Q6HP PRN PO Lorazepam 0 .STK-MED ONE .ROUTE (DC) Lorazepam 0 .STK-MED ONE .ROUTE (DC) Sodium Chloride 10 ML PRN PRN IV Acetaminophen 650 MG Q4HP PRN PO Promethazine HCl 6.25 MG Q4HP PRN IV Sodium Chloride 25 ML PRN PRN IV Lorazepam 0.5 MG TID PO Metoprolol Tartrate 25 MG TID PO (DC) Pantoprazole Sodium 40 MG DAILY PO Sodium Chloride 10 ML PRN PRN IV (DC) 05/30 1500 05/30 2300 05/31 0700 Intake Total 960 Output Total Balance 960 Intake, Oral 960 Last VS-Temp:98.6 B/P:102/62 Pulse:82 Resp:18 SaO2:98 ROOM AIR Last weight lbs:200 oz:0 K.720 Method:Floor Scales Venous Exam 05/30/17 Indications: 729.5 Pain in limb. IMPRESSIONS 1. There is no evidence of significant Reflux. 2. No evidence of deep or superficial vein thrombosis involving the right lower extremity and left lower extremity Complete lower extremity venous duplex evaluation. Doppler flow study including spectral analysis, color and [place] scale imaging. Location: Bedside. Patient status: Inpatient. Tables: Venous flow and imaging: Exam General appearance: no acute distress, not awake Cardiovascular: regular rate & rhythm Respiratory: clear to auscultation (bilat anterior and posterior) ABD: soft, no tenderness, bowel sounds present Extremities: no peripheral edema Assessment/Plan Problem List 1. Atypical chest pain 2. Nausea & vomiting 3. Depression 4. Leg pain 5. Anxiety disorder 6. GERD (gastroesophageal reflux disease) 7. Headache 8. ADHD (attention deficit hyperactivity disorder) 9. Fever 10. UTI (urinary tract infection) Patient condition fair-many complaints Plan: To have US this AM; urine culture pending; will start IV Rocephin for UTI This inpt stay is expected to cross 2 MNs from start of care No (Gabi Kemp APRN) Subjective Date 05/31/17 Time 1045 Assessment/Plan Problem List 1. Atypical chest pain 2. Nausea & vomiting 3. Depression 4. Leg pain 5. Anxiety disorder 6. GERD (gastroesophageal reflux disease) 7. Headache 8. ADHD (attention deficit hyperactivity disorder) 9. Fever 10. UTI (urinary tract infection) 11. Elevated d-dimer Assessment/Plan with negative chest CT and normal venous doppler Plan: He had his GB US earlier; results still pending. He is awake and alert and ate breakfast with no complaints of vomiting. His only complaint at present is low back ache. He is asking to go home. At this point, his cardiac status is stable now that he is back on his beta leena. He will f/u with Jeramy Garcia in 2 weeks. He only had a low grade fever during the night. Urine culture is pending and he will be discharged home on Ceftin pending results of the culture. Will make copies of labs and xrays for hime to take back to his appt with Dr. Santillan. He will f/u with me in 5-7 days. (ZhaneDerek garcia MD) at 0742 at 1057
[2017-05-31 08:00] VITALS: BP 118/76
[2017-05-31 09:36] VITALS: BP 118/76
[2017-05-31] MEDS ORDERED: CEFUROXIME AXE500 MG PO (10:38)
[2017-05-31] MEDS ORDERED: BISOPROLOL 5MG T5 MG PO (10:39)
--- NOTE | 2017-05-31 10:54 | RADIOLOGY REPORT PS360 ---
US GALLBLADDER (ABD LTD) HISTORY: Vomiting, abdominal pain, fever nausea, abdominal pain ORDERING PHYSICIAN: Derek Phelan MD PATIENT AGE: 31 years COMPARISON: None FINDINGS: PANCREAS: Unremarkable. No obvious mass or abnormal fluid collection. No ductal dilatation LIVER: No focal liver lesions demonstrated. Homogeneous echogenicity. No intrahepatic biliary ductal dilatation evident RIGHT KIDNEY: Unremarkable. Normal size and echogenicity. No hydronephrosis GALLBLADDER: No gallstones, gallbladder wall thickening, pericholecystic fluid, or biliary dilatation. IMPRESSION: Negative gallbladder/right upper quadrant ultrasound
[2017-05-31 11:49] VITALS: BP 118/76
--- NOTE | 2017-06-02 09:20 | DISCHARGE SUMMARY STANDARD ---
Discharge Summary (FCA2) Date of admission: 05/30/17 Date of discharge: 05/31/17 Problem List: 1. Atypical chest pain 2. Nausea & vomiting 3. Depression 4. Leg pain 5. Anxiety disorder 6. GERD (gastroesophageal reflux disease) 7. Headache 8. ADHD (attention deficit hyperactivity disorder) 9. Fever 10. UTI (urinary tract infection) 11. Elevated d-dimer History of present illness: Mr Steinberg is a 31 year old male with a history of ADHD, GERD, Anxiety and IBS who presented to [facility] ER yesterday with multiple complaints to include chest pain ("spasms"), headache, nausea, and bilateral leg pain. He did think that he vomited once. He was having normal bowel movements. He denied SOA. With workup in the ER patient was found to be tachycardic. EKG showed sinus tach at 128 bpm, short pr interval (old finding), ST-T abns inferiorly and anteriorly and cannot r/o old inferior NC. D Dimer was found to be elevated; CTA of the chest was negative for PE. CXR was normal. He was then admitted for further evaluation and treatment. He was r/o for NC with normal serial Troponin levels. CBC and CMP were basically normal. Patient stated that he had been having the chest pain (spasms) lasting for 1-2 minutes for a couple of months. He was unable to really provide any additional details. He stated that he had quit taking his Atenolol a month ago. He was also apparently suppose to be on several psych meds which he had also stopped. Exam on admission: 1ST Vital Signs Result Date Time Pulse Ox 98 05/29 930 B/P 122/75 05/29 930 Temp 97.4 05/29 09 Pulse 120 05/29 09 Resp 18 05/29 09 O2 Delivery ROOM AIR 05/29 1457 Exam: General appearance: alert, no acute distress, well-developed, well-nourished Eyes: anicteric, pupils reactive to light ENT: mucous membranes moist Neck: no carotid bruit, full range of motion, supple, carotid bruit (absent bilaterally), lymphadenopathy (absent), thyroid (normal) Cardiovascular: regular rate & rhythm, tachycardia Respiratory: clear to auscultation (bilat anterior and posterior) ABD: soft, no tenderness, no guarding, bowel sounds present Extremities: full range of motion, moves all, no peripheral edema, pedal pulses (present), no calf tenderness Neuro: alert, oriented, speech clear Hospital Course: After admission patient had various complaints which included headache and leg pain. Venous doppler studies were negative. He was seen by cardiology with the following assessment: 1. Atypical CP described as a "spasm" that lasts for 1-2 minutes. A. Normal serial Troponin levels. B. EKG on arrival: sinus tach at 128 bpm, short pr interval (old finding), ST-T abns inferiorly and anteriorly, cannot r/o old inferior NC C. EKG now: sinus tach at 101 bpm, short pr interval, ST-T abn lead III, NS T wave abn anteriorly D. Stress MPI 12/29/16: "low risk" abn test with apical ischemia, normal EF and wall motion. E. Echo 12/29/16: mild LVH, EF 50% w/no regional wall motion absence, no significant valve disease. 2. Sinus tachycardia of unclear etiology, possibly due to intermittent fever. A. Elevated D-Dimer (971) on arrival but negative CTA-Chest to r/o PE. B. Intermittent low-grade fever. C. Negative bilateral LE venous duplex with no evidence of deep or superficial vein thrombosis. D. Normal PA/Lat CXR E. Normal CMP and CBC. Recommendations: 1. EKG (completed) 2. Replace Metoprolol with Bisoprolol 5 mg bid (pt is concerned about metoprolol adversely affecting sex). 3. I don't think that any additional cardiology workup is necessary at this time , given his atypical sxs and "low-risk" stress MPI study earlier this year. 4. F/U in the office in 1-2 weeks (they will call to make appt). Patient had main complaints of tinnitus, headache and nausea. He thought he was vomiting. This was not witnessed by the nurses. He was noted to be followed with Dr. Santillan in [place] for his GI symptoms and was scheduled for a workup of his gallbladder. A recent gastric emptying study was reported as normal by his mother. He did have an intermittent fever. He was started on Rocephin for a possible UTI pending culture results. RUQ US was completed and noted to be negative. 05/31/17 the patient was asking to go home. He was able to eat without problems. Cardiac status was stable with the beta leena. He only had a low grade fever during the previous night. Urine culture was pending and he was discharged to home. on Ceftin pending results of the culture. Will make copies of labs and xrays for him to take back to his appt with Dr. Santillan. He will f/u with me in 5- 7 days. (Zhane ARZATE,Derek Harley) Laboratory data this visit: 05/30/17 0630: Sodium 138, Potassium 3.6, Chloride 101, Carbon Dioxide 26, BUN 15, Creatinine 1.0, Estimated Creat Clear 139, Estimated GFR (MDRD) 88, Glucose 108 H, Calcium 8.8, WBC 5.3, RBC 5.42, Hgb 16.1, Hct 47.1, MCV 87.0, RDW 12.5, Plt Count 145, MPV 7.1 L, Gran % 79.6, Gran # 4.2, Lymphocytes % 14.7, Monocytes % 4.7, Eosinophils % 0.6, Basophils % 0.4, Lymphocytes # 0.8, Monocytes # 0.3, Eosinophils # 0.0, Basophils # 0.0, PUBS MCHC 34.2, MCH 29.7 05/29/17 2325: Troponin I < 0.02 05/29/17 1650: Troponin I < 0.02 05/29/17 0950: Magnesium 1.8, B-Natriuretic Peptide < 5 05/29/17 0950: Sodium 139, Potassium 3.5, Chloride 99, Carbon Dioxide 30, BUN 13, Creatinine 1.2, Estimated Creat Clear 120, Estimated GFR (MDRD) 71, Glucose 111 H, Calcium 8.8, Total Bilirubin 0.4, AST 21, ALT 19, Alkaline Phosphatase 100, Creatine Kinase 80, CK-MB (CK-2) Rel Index 0.6, CK and CKMB Interp < 0.5, Troponin I < 0.02, Total Protein 7.9, Albumin 4.1, Globulin 3.8 H, Albumin/Globulin Ratio 1.1, D-Dimer 971 *H, WBC 5.4, RBC 5.67, Hgb 16.8, Hct 48.8, MCV 86.0, RDW 12.4, Plt Count 189, MPV 7.6, Gran % 79.9, Gran # 4.3, Lymphocytes % 14.0, Monocytes % 5.3, Eosinophils % 0.5, Basophils % 0.3, Lymphocytes # 0.8, Monocytes # 0.3, Eosinophils # 0.0, Basophils # 0.0, [facility] MCHC 34.4, MCH 29.609 0630: Sodium 140, Potassium 3.6, Chloride 101, Carbon Dioxide 29, BUN 15, Creatinine 1.0, Estimated Creat Clear 139, Estimated GFR (MDRD) 88, Glucose 105, Calcium 8.8, Total Bilirubin 0.5, AST 57 H, ALT 36, Alkaline Phosphatase 92, Total Protein 7.5, Albumin 3.7, Globulin 3.8 H, Albumin/Globulin Ratio 1.0 L, Amylase 38, Lipase 129, WBC 4.0 L, RBC 5.54, Hgb 16.6, Hct 48.7, MCV 87.8, RDW 12.4, Plt Count 120 L, MPV 7.6, Gran % 67.2, Gran # 2.7, Lymphocytes % 24.5, Monocytes % 6.6, Eosinophils % 1.2, Basophils % 0.5, Lymphocytes # 1.0, Monocytes # 0.3, Eosinophils # 0.1, Basophils # 0.0, [facility] MCHC 34.0, MCH 29.9 05/30/17 1311: Urine Color DK YELLOW, Urine Appearance CLEAR, Urine pH 6.0, Ur Specific [place] 1.025, Urine Protein TRACE H, Urine Ketones 1+ H, Urine Blood 2+ H, Urine Nitrate NEGATIVE, Urine Bilirubin 1+ H, Urine Urobilinogen 1.0, Ur Leukocyte Esterase NEGATIVE, Urine RBC 3-5, Urine WBC OCC, Ur Squamous Epith Cells OCC, Urine Bacteria 2+, Urine Mucus 4+, Urine Glucose NEGATIVE Microbiology Imaging: CXR 05/29/17 IMPRESSION: Nonacute chest findings CTA of chest 05/29/17 IMPRESSION: Negative for pulmonary embolus, no other significant abdomen I noted. Venous Exam 05/30/17 Indications: 729.5 Pain in limb. IMPRESSIONS 1. There is no evidence of significant Reflux. 2. No evidence of deep or superficial vein thrombosis involving the right lower extremity and left lower extremity Complete lower extremity venous duplex evaluation. Doppler flow study including spectral analysis, color and [place] scale imaging. Location: 05/31/17 RUQ US IMPRESSION: Negative gallbladder/right upper quadrant ultrasound Discharge medications: Stop taking the following medications: ATENOLOL (Atenolol 50MG) 50 MG TABLET ORAL DAILY Continue taking these medications: Dicyclomine Hcl (Bentyl (Generic) 10MG Capsule) 10 MG CAPSULE 10 MILLIGRAM ORAL TWICE A DAY Fluoxetine Hcl (Fluoxetine 20MG) 20 MG CAPSULE 60 MILLIGRAM ORAL DAILY Loratadine (Loratadine 10MG Tablet) 10 MG TABLET 10 MILLIGRAM ORAL DAILY Nitroglycerin (Nitrostat 0.4MG (1/150 Gr) Tabs #25) 0.4 MG TAB.SUBL 0.4 MILLIGRAM ORAL As Needed Buspirone Hcl (Buspar 10MG) 10 MG TABLET 10 MILLIGRAM ORAL TWICE A DAY Qty = 60 Omeprazole (Omeprazole 40MG) 40 MG CAPSULE.DR 40 MILLIGRAM ORAL DAILY Qty = 30 Linaclotide (Linzess 145MCG) 145 MCG CAPSULE 145 MICROGRAM ORAL DAILY Qty = 90 Start taking the following new medications: Cefuroxime Axetil (Cefuroxime) 500 MG TABLET 500 MILLIGRAM ORAL TWICE A DAY Qty = 14 No Refills BISOPROLOL FUMARATE (Bisoprolol 5MG) 5 MG TABLET 5 MILLIGRAM ORAL TWICE A DAY Qty = 60 Refills = 2 Disposition: Patient was discharged to home in stable and satisfactory condition. He will f/u with Jeramy Garcia in 2 weeks. He will be discharged home on Ceftin pending results of the culture. Will make copies of labs and xrays for him to take back to his appt with Dr. Santillan. Follow up: 5-[address] Phelan Activity: Cont Current activity Diet: Low Fat/Low Cholesterol Discharge to: HOME Agency needed? N Continue with meds as listed on reconciliation sheet. at 0920
== END 2017-05-31 12:00 | disposition home or self-care (01) | DRG 313 ==
LOC: ER 09:28 → 2ND 13:42
PROVIDERS: Emergency Medicine; Family Medicine
DX: R07.9 Chest pain, unspecified (principal); N39.0 Urinary tract infection, site not specified; K21.9 Gastro-esophageal reflux disease without esophagitis; F90.9 Attention-deficit hyperactivity disorder, unspecified type; M79.606 Pain in leg, unspecified
CPT/HCPCS: G0378; Q9967